=== PATIENT | male | born 2000 | race American Indian/Alaskan Native ===

== ENCOUNTER 2019-01-21 12:26 | Emergency (ER) | payer SELFPAY ==
--- NOTE | 2019-01-21 12:41 | Emergency Department Report ---
Minor Respiratory - HPI Chief Complaint: Sore Throat Stated Complaint: THROAT PAIN/HEADACHE Time Seen by Provider: 01/21/19 12:39 Duration: 3 Days Pain Location: Throat Severity: mild Minor Respiratory: Yes Sore Throat, Yes Able to Tolerate Fluids, No Rhinorrhea, No Ear Pain, No Cough, No Sick Contacts, No Hemoptysis, No Chest Pain, No Shortness of Breath, No Fever Other History: To ER with sore throat. mild fever. abc intact. no wheezing. has done nothing to feel better at home. ED Review of Systems ROS: Stated complaint: THROAT PAIN/HEADACHE Other details as noted in HPI Comment: All other systems reviewed and negative ED Past Medical Hx - Past Medical History Previous Medical History?: Yes Hx Asthma: Yes - Surgical History Past Surgical History?: No - Family History Family history: no significant - Social History Smoking Status: Current Every Day Smoker Substance Use Type: None - Medications Home Medications: Home Medications Medication Instructions Recorded Confirmed Last Taken Type RX: Amoxicillin [Trimox CAP] 500 mg PO BID #20 capsule 01/21/19 Unknown Rx Minor Respiratory Exam - Exam General: Vital signs noted. No distress. Alert and acting appropriately. HEENT: Yes Pharyngeal Erythema, Yes Pharyngeal Exudates, Yes Moist Mucous Membranes, No Rhinorrhea Lungs: Yes Good Air Exchange, No Wheezes Heart: Yes Regular, No Murmur Abdomen: No Tenderness, No Peritoneal Signs Skin: No Rash Neurologic: Alert and oriented, no deficits. Musculoskeletal: Unremarkable. ED Medical Decision Making - Medical Decision Making vss abc intact medicate with motrin dc home with dc plan of care Vital Signs 01/21/19 12:40 Temperature 100.1 F H Pulse Rate 80 Respiratory 18 Rate Blood Pressure 137/77 O2 Sat by Pulse 98 Oximetry Critical care attestation.: If time is entered above; I have spent that time in minutes in the direct care of this critically ill patient, excluding procedure time. ED Disposition Clinical Impression: Pharyngitis, Tonsil stone Disposition: DC-01 TO HOME OR SELFCARE Is pt being admited?: No Does the pt Need Aspirin: No Condition: Stable Instructions: Pharyngitis (ED) Additional Instructions: med as ordered motrin or tylenol for pain or fever follow up pcp to be sure getting better referral below Prescriptions: RX: Amoxicillin [Trimox CAP] 500 mg PO BID #20 capsule Referrals: ERIC STEWART MD [Staff Physician] - 3-5 Days Forms: Work/School Release Form(ED) Time of Disposition: 12:44
[2019-01-21 12:42] VITALS: BP 137/77
[2019-01-21] MEDS ORDERED: IBUPROFEN PO ONE ×3 (12:49→13:02)
== END 2019-01-21 13:02 | disposition home or self-care (01) ==
LOC: ED 12:26
DX: J02.9 Acute pharyngitis, unspecified (principal)
CPT/HCPCS: 99283